=== PATIENT | male | born 2000 | race Caucasian/White ===

== ENCOUNTER 2018-02-09 21:46 | Emergency (ER) | payer OTHER, SELFPAY ==
[2018-02-09 21:46] VITALS: BP 131/95; PULSE 106; RESP 16; TEMP 36.1; O2SAT 97; BMI 31.9
--- NOTE | 2018-02-09 22:10 | ED.VISSUMM ---
- ER Visit Summary Date of Service: 02/09/18 Chief Complaint: Sunburn History of Present Illness: The patient is a 17 M who presents to the emergency department with sunburn. Patient states that he was laying out . He was laying on his back in the sun. He put some sort of lotion that was not sunscreen on his skin to accelerate sun exposure. That night, he noticed redness. Shortly after, he began have blistering of his cheeks and shoulders. He states he has had some pain. He denies any fevers or chills. He denies any systemic symptoms. The patient is otherwise healthy. He is unsure of his last tetanus shot. Physical Examination: Exam is relatively unremarkable. Patient does have superficial walton of bilateral cheeks, right ear, anterior chest and shoulders. There is some slight blistering of the anterior shoulders. There are no partial-thickness or full-thickness walton. Sensation is preserved. There is no cellulitis or skin loss. Test Results: [] Emergency Department Course and Treatment: Patient presents with sunburn. His tetanus is updated. Bacitracin was applied to his blisters on his cheeks. He will be continuing this as an outpatient along with anti-inflammatories. He will be discharged home. Treatment Plan: [] Disposition: Discharge Impression: 1. Sunburn This note was generated with [employer] dictation software. It may contain incorrect words, spelling, and punctuation that were not noted in review of the chart prior to signing ED Disposition - Plan for ED Patient: Chief Complaint: Burn Instructions: ED Burn Sunburn Prescriptions: Naproxen [Naprosyn] 500 mg PO BID PRN #20 tab Bacitracin Ointment 1 applic TOPICAL TID #1 tube Referrals: NOT,DEFINED [Primary Care Provider] -
[2018-02-09] MEDS: Naproxen 500 MG Tablet PO (22:29)
[2018-02-09] MEDS: Diphth,Pertuss(Acell),Tet Vac 0.5 ML Vial IM (22:29)
[2018-02-09 22:33] VITALS: BP 128/73; PULSE 72; RESP 18; O2SAT 98
== END 2018-02-09 22:35 | disposition home or self-care (01) ==
LOC: ED 22:24
PROVIDERS: Emergency Provider Emergency Medicine
DX: L55.1 Sunburn of second degree (principal); L56.8 Other specified acute skin changes due to ultraviolet radiation; X32.XXXA Exposure to sunlight, initial encounter; Y93.9 Activity, unspecified; Y92.9 Unspecified place or not applicable; Y99.9 Unspecified external cause status; Z23 Encounter for immunization
CPT/HCPCS: 90471; 90715; 99283

== ENCOUNTER 2024-03-10 18:05 | Emergency (ER) | payer OTHER, SELFPAY ==
[2024-03-10 18:06] VITALS: BP 135/73; PULSE 71; RESP 16; TEMP 35.4; O2SAT 98
[2024-03-10] MEDS: Diphth,Pertuss(Acell),Tet Vac 0.5 ML Vial IM (20:54)
--- NOTE | 2024-03-10 20:54 | EX.ED.UPPERE ---
HPI History of Present Illness Chief Complaint: Laceration Narrative Narrative: 23-year-old male cut his left middle finger on a dish in the sink at work. Bleeding is been controlled. No numbness or tingling. Last tetanus unknown. Patient [id number]. Otherwise healthy. PFSH PFSH Home Medications ?Medication ?Instructions ?Recorded ?Last Taken ?Type bacitracin zinc 500 unit/gram 1 applic topical TID #1 tube 02/09/18 Unknown Rx topical ointment naproxen 500 mg tablet 500 mg PO BID PRN #20 tabs 02/09/18 Unknown Rx Allergy/AdvReac Type Severity Reaction Status Date / Time No Known Allergies Allergy Verified 03/10/24 18:09 Social History Smoking Status: Never smoker ROS ROS ED Constitutional Constitutional ED: Denies chills, fever(s) or sweats Eyes Eyes: Denies blurry vision or change in vision ENT ENT ED: Denies ear pain or sore throat Cardiovascular Cardiovascular: Denies chest pain, palpitations or racing heartbeat Respiratory/Chest Respiratory/Chest: Denies cough, dyspnea or sputum Gastrointestinal Gastrointestinal: Denies abdominal pain, constipation, diarrhea, nausea or vomiting Genitourinary Genitourinary ED: Denies dysuria, hematuria or urinary frequency Musculoskeletal Musculoskeletal: Denies arthralgias, myalgias or neck pain Integumentary Reports other Details: Laceration middle finger right hand ; Denies abscess, Abrasions or rash Neurologic Neurologic: Denies headache(s), paresthesias or weakness Psychiatric Psychiatric: Denies anxiety, depression, suicidal ideation or suicidal thoughts Endocrine Endocrinology: Denies polydipsia or polyuria EXAM Physical Exam Const Vital Signs: 03/10/24 18:06 Temperature 95.8 F L Temperature Source Temporal Pulse Rate 71 Respiratory Rate 16 Blood Pressure 135/73 H Blood Pressure Mean 93 Pulse Ox 98 Positive well nourished General Appearance ED: NAD Eyes PERRL Resp normal respiratory effort Cardio regular rate and regular rhythm Extremity Extremity Narrative: Superficial 1 cm laceration to distal middle finger. This is a flap. Is well-approximated. No active bleeding. No bony tenderness. Neurovascular intact. Neuro oriented x3 and CN's II-XII intact bilaterally Sensorium / Orientation: alert Psych mental status grossly normal MDM MDM MDM Narrative Medical decision making narrative: Patient is a superficial 1 cm flap like laceration. Does not require sutures. This was cleaned and dressed with bacitracin and a dressing. Recommended that he does not submerge just at work and to keep the dressing clean and dry. Tetanus was updated today. Patient discharged in stable condition. Impression: 1. Superficial laceration 1 cm Discharge Plan Triage Chief Complaint: Laceration ED Provider: William Pelaez Dx/Rx/DC Orders Instructions: ED Laceration Superficial No Stitch Prescriptions: No Action naproxen 500 MG tablet 500 mg PO BID PRN Qty: 20 0RF bacitracin zinc 1 APPLIC ointment 1 applic TOPICAL TID Qty: 1 0RF Primary Care Provider: Care Physician,No Primary Referrals: Care Physician,No Primary [Primary Care Provider] - Print Language: [place] Disposition Disposition: Home, Self Care
[2024-03-10 21:00] VITALS: BP 134/77; PULSE 68; RESP 16; TEMP 35.4; O2SAT 100; BMI 27.3
--- NOTE | 2024-03-10 21:02 | ED.RN ---
patient states he is not waiting for shot time after receiving his TDAP
== END 2024-03-10 21:03 | disposition home or self-care (01) ==
PROVIDERS: Emergency Provider Student in an Organized Health Care Education/Training Program; Visit Provider Student in an Organized Health Care Education/Training Program
DX: S61.213A Laceration without foreign body of left middle finger without damage to nail, initial encounter (principal); W26.8XXA Contact with other sharp object(s), not elsewhere classified, initial encounter; Y99.0 Civilian activity done for income or pay; Z23 Encounter for immunization
CPT/HCPCS: 90471; 90715; 99282